=== PATIENT | male | born 1970 | race Caucasian/White ===

== ENCOUNTER 2017-12-06 07:40 | Emergency (ER) | payer OTHER ==
[~2017-12-06] VITALS: Ht 182.9 cm; Wt 86.2 kg
[2017-12-06] MEDS ORDERED: COMPLERA TABLE1 EACH (08:20)
== END 2017-12-06 11:27 | disposition home or self-care (01) ==
LOC: ER 07:40
DX: L50.8 Other urticaria (principal)

== ENCOUNTER 2017-12-29 10:19 | Emergency (ER) | payer OTHER ==
[~2017-12-29] VITALS: Ht 182.9 cm; Wt 83.9 kg
[~2017-12-29 10:19] MED LIST: COMPLERA TABLE1 EACH
[2017-12-29] MEDS ORDERED: ZYRTEC10 M3 PO (14:16)
[2017-12-29] MEDS ORDERED: MEDROLPACK PO (14:16)
[2017-12-29] MEDS ORDERED: ATARAX25 MG PO (14:16)
== END 2017-12-29 14:31 | disposition home or self-care (01) ==
LOC: ER 10:19
DX: T78.1XXA Other adverse food reactions, not elsewhere classified, initial encounter (principal); R21 Rash and other nonspecific skin eruption

== ENCOUNTER 2018-02-14 10:21 | Emergency (ER) | payer OTHER ==
[~2018-02-14] VITALS: Ht 182.9 cm; Wt 85.7 kg
[~2018-02-14 10:21] MED LIST changes: +ATARAX25 MG PO; +MEDROLPACK PO; +ZYRTEC10 M3 PO
== END 2018-02-14 14:27 | disposition home or self-care (01) ==
LOC: ER 10:21
DX: R21 Rash and other nonspecific skin eruption (principal); T78.49XA Other allergy, initial encounter; N39.0 Urinary tract infection, site not specified